=== PATIENT | male | born 1985 | race Caucasian/White ===

== ENCOUNTER 2016-06-20 15:20 | Emergency (ER) | payer BC, OTHER ==
[2016-06-20 15:38] VITALS: BP 147/86; PULSE 79; RESP 16; TEMP 98.3
--- NOTE | 2016-06-20 17:48 | ED ---
General Adult HPI - General Chief complaint: ENT Stated complaint: Ear Pain Time Seen by Provider: 06/20/16 17:23 Source: patient, RN notes reviewed Mode of arrival: ambulatory Limitations: no limitations - History of Present Illness Initial comments: Patient is a 30 year old male with chief complaint of left ear pain, sinus congestion, and occasional dizziness from fluid in his ears for one week. Patient denies taking any OTC decongestants. He denies fever. Patient report he left work to be seen in the today. He states that he has had no cough, sore throat, headaches, fever, or chills. HE states he does smoke. Patient reports he received childhood vaccinations. - Related Data Home Medications Medication Instructions Recorded Confirmed Lisinopril [Zestril] 5 mg PO DAILY 03/07/16 03/07/16 Previous Rx's Medication Instructions Recorded Acetaminophen-Codeine 300-30mg 1 tab PO Q4H PRN #20 tablet 03/07/16 [Tylenol #3] Cyclobenzaprine [Flexeril] 10 mg PO TID PRN #15 tab 03/07/16 methylPREDNISolone [Medrol Dose 4 mg PO DIRECTED #1 pack 03/07/16 Pack] Amoxic-Pot Clav 875-125Mg 1 tab PO Q12HR #20 tablet 06/20/16 [Augmentin 875-125] Guaifenesin/Pseudoephedrne HCl 1 each PO BID #10 tab.er.12h 06/20/16 [Mucinex D ER 1,200-120 mg Tab] Meclizine HCl 12.5 mg PO TID #10 tab 06/20/16 Allergies Allergy/AdvReac Type Severity Reaction Status Date / Time No Known Allergies Allergy Verified 06/20/16 15:37 Review of Systems ROS Statement: Those systems with pertinent positive or pertinent negative responses have been documented in the HPI. ROS Other: All systems not noted in ROS Statement are negative. Past Medical History Past Medical History: Hypertension Additional Past Medical History / Comment(s): back pain, History of Any Multi-Drug Resistant Organisms: None Reported Past Surgical History: Adenoidectomy, Appendectomy Past Psychological History: Bipolar, Depression Smoking Status: Current every day smoker Past Alcohol Use History: Occasional Past Drug Use History: None Reported General Exam - General Exam Comments Initial Comments: Well appearing 30 year old male, in no acute dsitress. Limitations: no limitations General appearance: alert, in no apparent distress Head exam: Present: atraumatic, normocephalic, normal inspection Eye exam: Present: normal appearance, PERRL, EOMI. Absent: scleral icterus, conjunctival injection, periorbital swelling ENT exam: Present: normal exam, normal oropharynx, mucous membranes moist, TM's normal bilaterally (mild fluid in left TM. ) Neck exam: Present: normal inspection. Absent: tenderness, meningismus, lymphadenopathy Respiratory exam: Present: normal lung sounds bilaterally. Absent: respiratory distress, wheezes, rales, rhonchi, stridor Cardiovascular Exam: Present: regular rate, normal rhythm, normal heart sounds. Absent: systolic murmur, diastolic murmur, rubs, gallop, clicks GI/Abdominal exam: Present: soft, normal bowel sounds. Absent: distended, tenderness, guarding, rebound, rigid Extremities exam: Present: normal inspection, full ROM, normal capillary refill. Absent: tenderness, pedal edema, joint swelling, calf tenderness Back exam: Present: normal inspection Neurological exam: Present: alert, oriented X3, CN II-XII intact Psychiatric exam: Present: normal affect, normal mood Skin exam: Present: warm, dry, intact, normal color. Absent: rash Course Vital Signs 06/20/16 15:35 Temperature 98.3 F Pulse Rate 79 Respiratory 16 Rate Blood Pressure 147/86 O2 Sat by Pulse 99 Oximetry Medical Decision Making - Medical Decision Making Patient is a 30 year old male with one week of sinus congestion. Patient has no fever, wheezing, or cough. Patient has mild fluid in left TM. Patient given Rx for decongestant, meclinzine for fluid in his ear, and Rx of augmentin. I had a lengthy discussion that patient needs to start antibiotic if symptoms continue to persist after 3 days of decongestant. Patient given a note for work. Patient understands treatment plan and will comply. Return parameters discussed. Disposition Clinical Impression: Sinusitis, Ear ache Disposition: HOME SELF-CARE Condition: Good Instructions: Earache (ED), Sinusitis (ED) Additional Instructions: Is instructed to take medications as prescribed. Follow-up with primary care provider if symptoms continue persist. Start antibiotics in one to 2 days symptoms continue to persist. Return to the [facility] if any alarming signs or symptoms occur. Prescriptions: Amoxic-Pot Clav 875-125Mg [Augmentin 875-125] 1 tab PO Q12HR #20 tablet Guaifenesin/Pseudoephedrne HCl [Mucinex D ER 1,200-120 mg Tab] 1 each PO BID # 10 tab.er.12h Meclizine HCl 12.5 mg PO TID #10 tab Referrals: Kristin Boone MD [Primary Care Provider] - 1-2 days Time of Disposition: 17:46
== END 2016-06-20 17:54 | disposition home or self-care (01) ==
LOC: EC 15:20
DX: H92.02 Otalgia, left ear (principal); J32.9 Chronic sinusitis, unspecified; I10 Essential (primary) hypertension; F17.200 Nicotine dependence, unspecified, uncomplicated; Z79.899 Other long term (current) drug therapy
CPT/HCPCS: 99282

== ENCOUNTER 2016-07-12 19:15 | Emergency (ER) | payer BC ==
[2016-07-12 19:42] VITALS: BP 157/87; PULSE 68; RESP 18; TEMP 98.2
[2016-07-12] MEDS ORDERED: KETOROLAC 60 MG/2 ML VIAL IM STA (19:56)
--- NOTE | 2016-07-12 20:05 | ED ---
Upper Extremity HPI - General Chief Complaint: Extremity Injury, Upper Stated Complaint: Back Pain/Shoulder Pain Time Seen by Provider: 07/12/16 19:49 Source: patient, RN notes reviewed Mode of arrival: ambulatory Limitations: no limitations - History of Present Illness Initial Comments: 30 yo male presents to the ER with cc of right shoulder pain. Patient states he was at the gym and he noticed that his right shoulder was causing him some pain. Patient states there wasn't one incident that caused of the pain that he noticed that throughout the workout he did become More pain. Patient states he now has pain to the right shoulder worse with movement and does radiate up into the neck and pain with some range of motion of the neck as well. Patient does admit to a history of shoulder pain in the past. Patient states that it happens sometimes. Patient states that he did work out quite often when he was younger and is currently trying to prevent a better strategy states he does not get injured. Patient states she was concerned because the pain continued to hurt throughout the day and even after he quit working outside that he should be evaluated. Patient denies any recent fever, chills, shortness of breath, chest pain, back pain, abdominal pain, nausea vomiting, numbness or tingling, dysuria or hematuria, constipation or diarrhea, headaches or visual changes, or any other current symptoms. - Related Data Previous Rx's Medication Instructions Recorded Ibuprofen [Motrin] 600 mg PO Q6HR PRN #20 tab 07/12/16 Orphenadrine [Norflex] 100 mg PO Q12H #10 tablet.er 07/12/16 Allergies Allergy/AdvReac Type Severity Reaction Status Date / Time No Known Allergies Allergy Verified 07/12/16 20:01 Review of Systems ROS Statement: Those systems with pertinent positive or pertinent negative responses have been documented in the HPI. ROS Other: All systems not noted in ROS Statement are negative. Past Medical History Past Medical History: Hypertension Additional Past Medical History / Comment(s): back pain, History of Any Multi-Drug Resistant Organisms: None Reported Past Surgical History: Adenoidectomy, Appendectomy Past Psychological History: Bipolar, Depression Smoking Status: Current every day smoker Past Alcohol Use History: Occasional Past Drug Use History: None Reported General Exam - General Exam Comments Initial Comments: General: The patient is awake and alert, in no distress, and does not appear acutely ill. Neck: The neck is supple, there is no tenderness. Cardiovascular: There is a regular rate and rhythm. No murmur, rub or gallop is appreciated. Respiratory: Lungs are clear to auscultation, respirations are non-labored, breath sounds are equal. No wheezes, stridor, rales, or rhonchi. Musculoskeletal: Sensation intact with 2+ pulses that her right upper chest. Full range of motion of the right shoulder right elbow and patient's neck. There is no bony tenderness noted. Tenderness patient along the trapezius. No deformity. Neurological: CN II-XII intact, There are no obvious motor or sensory deficits. Coordination appears grossly intact. Speech is normal. Skin: Skin is warm and dry and no rashes or lesions are noted. Psychiatric: Normal mood and affect. Limitations: no limitations Course Vital Signs 07/12/16 19:39 Temperature 98.2 F Pulse Rate 68 Respiratory 18 Rate Blood Pressure 157/87 O2 Sat by Pulse 99 Oximetry Medical Decision Making - Medical Decision Making 30-year-old male presents with a right shoulder strain and trapezius strain. At this time patient underwent an x-ray does not show any acute findings. We did discuss follow-up with orthopedic information. We discussed return parameters and all the patient's questions. He stated they understood using. The plan we will give him a short course of muscle relaxers and anti- inflammatories home. - Radiology Data Radiology results: report reviewed, image reviewed Disposition Clinical Impression: Right shoulder strain, Trapezius strain Disposition: HOME SELF-CARE Condition: Stable Instructions: Rotator Cuff Injury (ED) Additional Instructions: Please use medication as discussed. Please follow up with family doctor if symptoms have not improved over the next two days. Please return to the emergency room if your symptoms increase or worsen or for any other concerns. Prescriptions: Ibuprofen [Motrin] 600 mg PO Q6HR PRN #20 tab PRN Reason: Pain Orphenadrine [Norflex] 100 mg PO Q12H #10 tablet.er Referrals: Kristin Boone MD [Primary Care Provider] - 1-2 days Billy Walters DO [Doctor of Osteopathic Medicine] - 1-2 days Time of Disposition: 20:44
--- NOTE | 2016-07-12 20:37 | XR ---
Right shoulder HISTORY: Injury, pain 3 views of the right shoulder No comparisons Bone mineralization, joint spaces and alignment are maintained. Right lung apex as visualized is norm al IMPRESSION: No fracture or dislocation
== END 2016-07-12 21:03 | disposition home or self-care (01) ==
LOC: EC 19:15
DX: S46.011A Strain of muscle(s) and tendon(s) of the rotator cuff of right shoulder, initial encounter (principal); F17.200 Nicotine dependence, unspecified, uncomplicated; X58.XXXA Exposure to other specified factors, initial encounter; Y92.39 Other specified sports and athletic area as the place of occurrence of the external cause
CPT/HCPCS: 73030; 99283; 96372; J1885

== ENCOUNTER 2016-07-17 02:12 | Emergency (ER) | payer BC ==
[2016-07-17 02:19] VITALS: BP 144/94; PULSE 103; RESP 20; TEMP 99
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
== END 2016-07-17 04:13 | disposition home or self-care (01) ==
LOC: EC 02:12
DX: S01.111A Laceration without foreign body of right eyelid and periocular area, initial encounter (principal); S09.90XA Unspecified injury of head, initial encounter; Y04.2XXA Assault by strike against or bumped into by another person, initial encounter; F17.200 Nicotine dependence, unspecified, uncomplicated; J32.0 Chronic maxillary sinusitis; J32.2 Chronic ethmoidal sinusitis; Z87.81 Personal history of (healed) traumatic fracture
CPT/HCPCS: 12011; 70450; 70486; 72125; 99284

== ENCOUNTER 2016-11-10 14:26 | Emergency (ER) | payer BC ==
[2016-11-10 14:54] VITALS: BP 136/88; PULSE 86; RESP 20; TEMP 97.9
--- NOTE | 2016-11-10 15:56 | ED ---
ENT HPI - General Chief complaint: ENT Stated complaint: Ear Pain/Dental Pain Time Seen by Provider: 11/10/16 15:09 Source: patient, RN notes reviewed Mode of arrival: ambulatory Limitations: no limitations - History of Present Illness Initial comments: Patient is a 31-year-old male presents to the emergency room for evaluation of left ear pain and left upper dental pain. Patient states pain began yesterday and has been getting worse. Patient does state he has a history of ear infections. Patient states he had tubes placed when he was 21 years old. Patient states he feels like he has an ear infection again. Patient also states he began having dental pain in his left upper tooth. Patient states he has a dentist appointment on Monday. Patient denies fevers or chills. Patient does state he is having headaches from the ear pain. Patient does state he does have a decrease in hearing in his left ear as well. - Related Data Previous Rx's Medication Instructions Recorded Ibuprofen [Motrin] 600 mg PO Q6HR PRN #20 tab 07/12/16 Orphenadrine [Norflex] 100 mg PO Q12H #10 tablet.er 07/12/16 Amoxicillin/Potassium Clav 1 each PO Q12HR #20 tab 11/10/16 [Augmentin 875-125 Tablet] Ibuprofen [Motrin] 600 mg PO Q6HR PRN #20 tab 11/10/16 Allergies Allergy/AdvReac Type Severity Reaction Status Date / Time No Known Allergies Allergy Verified 11/10/16 14:54 Review of Systems ROS Statement: Those systems with pertinent positive or pertinent negative responses have been documented in the HPI. ROS Other: All systems not noted in ROS Statement are negative. Past Medical History Past Medical History: Hypertension Additional Past Medical History / Comment(s): back pain, History of Any Multi-Drug Resistant Organisms: None Reported Past Surgical History: Adenoidectomy, Appendectomy Past Psychological History: Bipolar, Depression Smoking Status: Current every day smoker Past Alcohol Use History: Occasional Past Drug Use History: None Reported General Exam - General Exam Comments Initial Comments: Sitting in exam room, no acute distress. Limitations: no limitations General appearance: alert, in no apparent distress Head exam: Present: atraumatic, normocephalic, normal inspection Eye exam: Present: normal appearance Expanded TM/Canal exam: Erythema: Left TM, Canal Tenderness: Left TM Mouth exam: Present: normal external inspection Teeth exam: Present: dental tenderness # (15) Throat exam: normal inspection Neck exam: Present: normal inspection Respiratory exam: Absent: respiratory distress Extremities exam: Present: normal inspection Back exam: Present: normal inspection Neurological exam: Present: alert, oriented X3, CN II-XII intact Psychiatric exam: Present: normal affect, normal mood Skin exam: Present: warm, dry, intact, normal color. Absent: rash Course Vital Signs 11/10/16 14:53 Temperature 97.9 F Pulse Rate 86 Respiratory 20 Rate Blood Pressure 136/88 O2 Sat by Pulse 99 Oximetry Medical Decision Making - Medical Decision Making Patient is a 31-year-old male presents emergency room for evaluation of left upper dental pain and left ear pain. Patient be treated for otitis media and dental pain. Patient does have a dentist appointment on Monday. Advised patient to follow-up with primary care provider if ear pain worsens or does not improve. Patient states he understands everything that was discussed with him. Return parameters discussed. Disposition Clinical Impression: Pain, dental, Otitis media Disposition: HOME SELF-CARE Condition: Good Instructions: Otitis Media (ED), Toothache (ED) Additional Instructions: Take antibiotics as directed. Please follow up with primary care provider and dentist. If any new symptom arises or symptoms worsen, return to ER as soon as possible. Prescriptions: Ibuprofen [Motrin] 600 mg PO Q6HR PRN #20 tab PRN Reason: Pain Amoxicillin/Potassium Clav [Augmentin 875-125 Tablet] 1 each PO Q12HR #20 tab Referrals: Kristin Boone MD [Primary Care Provider] - 1-2 days Time of Disposition: 15:50
== END 2016-11-10 16:04 | disposition home or self-care (01) ==
LOC: EC 14:26
DX: H66.92 Otitis media, unspecified, left ear (principal); K08.89 Other specified disorders of teeth and supporting structures; R51 Headache; F17.200 Nicotine dependence, unspecified, uncomplicated
CPT/HCPCS: 99282

== ENCOUNTER 2017-12-29 14:31 | Inpatient (IN) | payer BC ==
--- NOTE | 2017-12-29 15:04 | ED ---
Psych HPI - General Chief Complaint: Psychiatric Symptoms Stated Complaint: Mental Health Time Seen by Provider: 12/29/17 14:42 Source: patient, RN notes reviewed Mode of arrival: ambulatory Limitations: no limitations - History of Present Illness Initial Comments: 32-year-old male presents emergency Department chief complaint of depression, suicidal ideation. He states that he's had on-and-off thoughts with no plan. Patient states that approximately 6 months ago he stopped drinking alcohol but states that he then became involved in drugs. He states he has been using cocaine. Patient states that his mom for some come to the hospital today to receive help. Patient denies any physical complaints. Denies any homicidal ideation. Patient denies chest pain, shortness breath, headache, dizziness, nausea, vomiting, diarrhea constipation. - Related Data Previous Rx's Medication Instructions Recorded Ibuprofen [Motrin] 600 mg PO Q6HR PRN #20 tab 07/12/16 Orphenadrine [Norflex] 100 mg PO Q12H #10 tablet.er 07/12/16 Amoxicillin/Potassium Clav 1 each PO Q12HR #20 tab 11/10/16 [Augmentin 875-125 Tablet] Ibuprofen [Motrin] 600 mg PO Q6HR PRN #20 tab 11/10/16 Allergies Allergy/AdvReac Type Severity Reaction Status Date / Time No Known Allergies Allergy Verified 12/29/17 14:39 Review of Systems ROS Statement: Those systems with pertinent positive or pertinent negative responses have been documented in the HPI. ROS Other: All systems not noted in ROS Statement are negative. Past Medical History Past Medical History: Hypertension Additional Past Medical History / Comment(s): back pain, alcoholism History of Any Multi-Drug Resistant Organisms: None Reported Past Surgical History: Adenoidectomy, Appendectomy Past Psychological History: Bipolar, Depression Smoking Status: Current every day smoker Past Alcohol Use History: Occasional Past Drug Use History: Cocaine General Exam Limitations: no limitations General appearance: alert, in no apparent distress Head exam: Present: atraumatic, normocephalic, normal inspection Eye exam: Present: normal appearance, PERRL, EOMI. Absent: scleral icterus, conjunctival injection, periorbital swelling ENT exam: Present: normal exam, normal oropharynx, mucous membranes moist Neck exam: Present: normal inspection, full ROM. Absent: tenderness, meningismus, lymphadenopathy Respiratory exam: Present: normal lung sounds bilaterally. Absent: respiratory distress, wheezes, rales, rhonchi, stridor Cardiovascular Exam: Present: regular rate, normal rhythm, normal heart sounds. Absent: systolic murmur, diastolic murmur, rubs, gallop, clicks GI/Abdominal exam: Present: soft, normal bowel sounds. Absent: distended, tenderness, guarding, rebound, rigid Psychiatric exam: Present: depressed Skin exam: Present: warm, dry, intact, normal color. Absent: rash Course Vital Signs 12/29/17 14:37 Temperature 98.2 F Pulse Rate 67 Respiratory 18 Rate Blood Pressure 143/91 O2 Sat by Pulse 98 Oximetry Medical Decision Making - Lab Data Lab Results 12/29/17 Range/Units 14:50 Urine Opiates Screen Not Detected (NotDetected) Ur Oxycodone Screen Not Detected (NotDetected) Urine Methadone Screen Not Detected (NotDetected) Ur Propoxyphene Screen Not Detected (NotDetected) Ur Barbiturates Screen Not Detected (NotDetected) U Tricyclic Antidepress Not Detected (NotDetected) Ur Phencyclidine Scrn Not Detected (NotDetected) Ur Amphetamines Screen Not Detected (NotDetected) U Methamphetamines Scrn Not Detected (NotDetected) U Benzodiazepines Scrn Not Detected (NotDetected) Urine Cocaine Screen Detected H (NotDetected) U Marijuana (THC) Screen Detected H (NotDetected) Disposition Clinical Impression: Depression, Suicidal ideation, Cocaine dependence Disposition: ADMITTED IP TO THIS [facility] Condition: Stable Referrals: Kristin Boone MD [Primary Care Provider] - 1-2 days
[2017-12-29 15:14] LABS: Amphetamine Screen,Urine Not Detected (NotDetected); Barbiturate Screen,Urine Not Detected (NotDetected); Benzodiazepines Screen,Urine Not Detected (NotDetected); Cocaine Screen,Urine Detected (NotDetected); Methadone Screen, Urine Not Detected (NotDetected); Opiate Screen,Urine Not Detected (NotDetected); Oxycodone Screen, Urine Not Detected (NotDetected); Phencyclidine Screen,Urine Not Detected (NotDetected); Tricyclic Antidepressant,Urine Not Detected (NotDetected); Urn Cannabinoid Scrn Detected (NotDetected)
[2017-12-29] MEDS ORDERED: MAG HYDROX/AL HYDROX/SIMETH 30 ML CUP PO PRN (16:26)
[2017-12-29] MEDS ORDERED: ZIPRASIDONE 20 MG VIAL IM PRN (16:26)
[2017-12-29] MEDS ORDERED: LORazepam 1 MG TAB PO PRN (16:26)
[2017-12-29] MEDS ORDERED: MAGNESIUM HYDROXIDE 2,400 MG/10 ML CUP PO PRN (16:26)
[2017-12-29 16:31] VITALS: RESP 16
[2017-12-29] MEDS ORDERED: LORazepam 2 MG/ML INJ IM PRN (16:31)
[2017-12-29] MEDS: NICOTINE 14MG/24HR PATCH TRANSDERM SCH (17:26)
[2017-12-29] MEDS: ACETAMINOPHEN TAB 325 MG TAB PO PRN ×2 (17:28→23:19)
[2017-12-29 18:18] VITALS: BMI 23.8
[2017-12-30 08:37] LABS: Albumin 4.5 g/dL (3.5-5.0); Anion Gap 7 mmol/L; Bilirubin, Delta 0.2 mg/dL (0.0-0.2); Bilirubin,Unconjugated 0.3 mg/dL (0.0-1.1); Calcium 9.5 mg/dL (8.4-10.2); Carbon Dioxide 28 mmol/L (22-30); Chloride 104 mmol/L (98-107); Glucose 110 mg/dL (74-99); Sodium 139 mmol/L (137-145); Total Bilirubin 0.5 mg/dL (0.2-1.3)
[2017-12-30 08:52] LABS: ALT 23 U/L (21-72); AST 20 U/L (17-59); Alkaline Phosphatase 52 U/L (38-126); Blood Urea Nitrogen 14 mg/dL (9-20); Potassium 4.9 mmol/L (3.5-5.1)
[2017-12-30] MEDS: NICOTINE 14MG/24HR PATCH TRANSDERM SCH (08:57)
[2017-12-30 09:25] LABS: Basophils % (A) 1 %; Eosinophils # (A) 0.2 k/uL (0-0.7); Eosinophils % (A) 2 %; HCT 46.8 % (39.0-53.0); HGB 15.1 gm/dL (13.0-17.5); Lymphocytes # (A) 2.9 k/uL (1.0-4.8); Lymphocytes % (A) 41 %; MCH 29.9 pg (25.0-35.0); MCHC 32.3 g/dL (31.0-37.0); MCV 92.5 fL (80.0-100.0); Mean Platelet Volume 7.7; Monocytes # (A) 0.4 k/uL (0-1.0); Monocytes % (A) 5 %; Neutrophils # (A) 3.3 k/uL (1.3-7.7); Neutrophils % (A) 47 %; Platelet Count 206 k/uL (150-450); RBC 5.06 m/uL (4.30-5.90); RDW 12.6 % (11.5-15.5); WBC 7.1 k/uL (3.8-10.6)
[2017-12-30] MEDS: DIVALPROEX ER 500 MG TAB.ER.24H PO SCH (10:42)
[2017-12-30] MEDS: DULoxetine HCL 30 MG CAPSULE.DR PO SCH (10:42)
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
--- NOTE | 2017-12-30 13:37 | P.CONS ---
History of Present Illness - Reason for Consult Medical clearance - History of Present Illness Patient is a very pleasant 32-year-old gentleman came in the with suicidal ligation admitted to psychiatric floor. Patient does have history of bipolar disorder does have history of drug abuse in the past patient recent cocaine use was couple days ago and patient does use marijuana often. was recently treated with antibiotics for for his broken tooth he completed a course of antibiotics would not require any more. Patient is willing to quit his smoking alcohol or any other street drugs. Patient denied any fever chills nausea vomiting abdominal pain. Review of Systems REVIEW OF SYSTEMS: CONSTITUTIONAL: No fever, no malaise, no fatigue. HEENT: No recent visual problems or hearing problems. Denied any sore throat. CARDIOVASCULAR: No chest pain, orthopnea, PND, no palpitations, no syncope. PULMONARY: No shortness of breath, no cough, no hemoptysis. GASTROINTESTINAL: No diarrhea, no nausea, no vomiting, no abdominal pain. Normoactive bowel sounds. NEUROLOGICAL: No headaches, no weakness, no numbness. HEMATOLOGICAL: Denies any bleeding or petechiae. GENITOURINARY: Denies any burning micturition, frequency, or urgency. MUSCULOSKELETAL/RHEUMATOLOGICAL: Denies any joint pain, swelling, or any muscle pain. ENDOCRINE: Denies any polyuria or polydipsia. The rest of the 14-point review of systems is negative. Past Medical History Past Medical History: Hypertension Additional Past Medical History / Comment(s): back pain, alcoholism History of Any Multi-Drug Resistant Organisms: None Reported Past Surgical History: Adenoidectomy, Appendectomy Past Anesthesia/Blood Transfusion Reactions: No Reported Reaction Past Psychological History: Bipolar, Depression Smoking Status: Current every day smoker Past Alcohol Use History: Occasional Past Drug Use History: Cocaine, Marijuana Medications and Allergies Home Medications Medication Instructions Recorded Confirmed Type Dextroamphetamine/Amphetamine 20 mg PO TID 12/29/17 12/29/17 History [Adderall] Allergies Allergy/AdvReac Type Severity Reaction Status Date / Time No Known Allergies Allergy Verified 12/29/17 16:30 Physical Exam Vitals: Vital Signs Temp Pulse Pulse Resp BP BP Pulse Ox 12/30/17 06:47 97.7 F 60 16 115/76 12/29/17 18:09 97.2 F L 65 16 107/67 99 12/29/17 16:30 98.0 F 60 16 124/72 100 08/03/18 14:37 98.2 F 67 18 143/91 98 Intake and Output 12/29/17 12/30/17 12/30/17 22:59 06:59 14:59 Other: Weight 67 kg PHYSICAL EXAMINATION: GENERAL: The patient is alert and oriented x3, not in any acute distress. Well developed, well nourished. HEENT: Pupils are round and equally reacting to light. EOMI. No scleral icterus. No conjunctival pallor. Normocephalic, atraumatic. No pharyngeal erythema. No thyromegaly. CARDIOVASCULAR: S1 and S2 present. No murmurs, rubs, or gallops. PULMONARY: Chest is clear to auscultation, no wheezing or crackles. ABDOMEN: Soft, nontender, nondistended, normoactive bowel sounds. No palpable organomegaly. MUSCULOSKELETAL: No joint swelling or deformity. EXTREMITIES: No cyanosis, clubbing, or pedal edema. NEUROLOGICAL: Gross neurological examination did not reveal any focal deficits. SKIN: No rashes. Results CBC & Chem 7: 12/30/17 08:08 12/30/17 08:08 Labs: Abnormal Lab Results - Last 24 Hours (Table) 12/29/17 12/30/17 Range/Units 14:50 08:08 Glucose 110 H (74-99) mg/dL Urine Cocaine Screen Detected H (NotDetected) U Marijuana (THC) Screen Detected H (NotDetected) Assessment and Plan Plan: -Depression and suicidal ideation, bipolar disorder: Management as per primary service -Drug abuse alcohol abuse: Counseling was provided and patient is willing to quit and patient will go to drug rehabilitation program after his discharge from psychiatric floor. No further recommendations from medicine perspective, we'll sign off at this time call us back if needed
[2017-12-30 17:59] LABS: Amorphous Sediment,Urine Few /hpf; Appearance,Urine Turbid (Clear); Bilirubin,Urine Negative (Negative); Blood,Urine Negative (Negative); Color,Urine Yellow; Glucose,Urine (UA) Negative (Negative); Ketones,Urine Negative (Negative); Leukocyte Esterase,Urine Negative (Negative); Nitrite,Urine Negative (Negative); Protein,Urine Negative (Negative); Specific Gravity,Urine 1.014 (1.001-1.035); Squamous Epithelial Cell,Urine <1 /hpf (0-4); Urobilinogen,Urine <2.0 mg/dL (<2.0)
[2017-12-31] MEDS: NICOTINE 14MG/24HR PATCH TRANSDERM SCH (08:59)
[2017-12-31] MEDS: DIVALPROEX ER 500 MG TAB.ER.24H PO SCH (08:59)
[2017-12-31] MEDS: DULoxetine HCL 30 MG CAPSULE.DR PO SCH (08:59)
--- NOTE | 2017-12-31 14:01 | PN ---
PROGRESS NOTE DATE OF SERVICE: Today is December 31, 2017. SUBJECTIVE: Mr. Quincy Ham is a 32-year-old single male with history of bipolar disorder and attention deficit disorders. Again seen today, still somewhat depressed and down. He reports taking medication, tolerating well, reporting no side effects. He reports he has trouble sleeping last night. He took Cymbalta and did not have any nausea or vomiting. He denies any other issues. He is still vaguely suicidal but feels safe on the unit. MENTAL EXAMINATION: Patient is alert, awake, oriented x4. Has fair eye contact. Speech is somewhat few word sentences soft tone. Mood dysphoric, anxious with congruent affect. He still has suicidal ideation but feels safe on the unit. No homicidal ideation. He denies any auditory or visual hallucinations. Attention is better. Insight and judgment has started improving slowing and gradually. ASSESSMENT: Bipolar disorder type 1, most recent episode depression without psychosis. PLAN: We will continue to adjust medications accordingly. Encouraged to attend groups and meetings. Supportive therapy provided. NEDA / ADONAY: [id number] /
[2018-01-01] MEDS: DIVALPROEX ER 500 MG TAB.ER.24H PO SCH (08:20)
[2018-01-01] MEDS: NICOTINE 14MG/24HR PATCH TRANSDERM SCH (08:20)
[2018-01-01] MEDS: DULoxetine HCL 30 MG CAPSULE.DR PO SCH (08:21)
--- NOTE | 2018-01-01 10:21 | P.PN ---
Progress Note - Text Interval history: The patient is found in group he follows me to an interview room. He was admitted to the mental health unit with suicidal ideation. He was seen by the covering psychiatrist and was diagnosed with bipolar 1 depression. His symptoms also occur in the context of cocaine and marijuana use disorders. He reports feeling safe here in the hospital. He feels that he is stabilizing. We reviewed his medications and decided to titrate the Cymbalta further. He does endorse episodes that could seem manic at times but it is not clear at this point. He thinks that the Depakote has helped with impulsivity and anger in the past. He states that he is interested in participating in inpatient chemical dependency treatment as he has been using cocaine and marijuana almost daily for the last 2 months. Mental status exam: The patient is a male appearing his stated age. He is dressed in his own clothing. He is cooperative. Eye contact is appropriate speech is fluent spontaneous nonpressured. He reports improvement of suicidal thoughts. He is endorsing no homicidal ideation. He is trying to foster future oriented thinking. He demonstrates no verbal or physical aggressiveness. Affect remains constricted throughout the session. He is oriented to person place and date. He is endorsing no auditory or visual hallucinations or any specific delusions. He does not appear overtly psychotic and he does not appear hypomanic or manic. Plan: The patient will continue on Cymbalta however we will titrate the dose to 60 mg daily. We will continue the Depakote as written for now. He is encouraged to discuss his plans for inpatient chemical dependency treatment with social work and we will discuss this further in treatment team meeting. Vital signs reviewed. We will monitor for safety and encourage his participation in the milieu.
[2018-01-01] MEDS: ACETAMINOPHEN TAB 325 MG TAB PO PRN (22:39)
[2018-01-02 06:26] VITALS: BP 116/62; PULSE 62; TEMP 97.8
[2018-01-02] MEDS: NICOTINE 14MG/24HR PATCH TRANSDERM SCH (08:11)
[2018-01-02] MEDS: DIVALPROEX ER 500 MG TAB.ER.24H PO SCH (08:11)
[2018-01-02] MEDS ORDERED: DULoxetine HCL 60 MG CAPSULE.DR PO SCH (09:00)
--- NOTE | 2018-01-02 09:54 | P.DS ---
Providers Date of admission: 12/29/17 16:22 Expected date of discharge: 01/02/18 Attending physician: Daniel Dickey Consults: 12/29/17 16:26 Consult Physician Routine Consulting Provider: Shi Guerrero Consult Reason/Comments: H & P, HTN, medical care Do you want consulting provider notified?: Yes Primary care physician: Paolo Foster - Discharge Diagnosis(es) (1) Depression Current Visit: Yes Status: Acute Priority: High (2) Cocaine use disorder Current Visit: Yes Status: Acute Priority: High (3) Cannabis use disorder, moderate, dependence Current Visit: Yes Status: Acute Priority: Medium Hospital Course: Brief summary of admission note: This patient is a 32-year-old single male who was admitted to the mental health unit with worsening symptoms of depression and suicidal ideation. The patient reported feeling depressed for the last few weeks. He been off of medication for an extended period of time. He reported symptoms of anhedonia, irritability, decreased concentration, feeling tired with poor appetite and low energy. For full detail please refer to the psychiatric evaluation dated 12/30/2017. Summary of hospital course: The patient was admitted to the mental health unit voluntarily. He was seen by the [facility] physician for the initial evaluation. I assumed care of the patient starting yesterday. I reviewed the psychiatric evaluation and other documentation in the electronic medical record. I interviewed the patient yesterday and he was seen today. He states that his suicidal ideation has resolved and he is feeling quite hopeful now that he has made arrangements to go to a long-term chemical dependency treatment facility in [place]. His mother is assisting him with these arrangements. This was discussed with social work and she we'll verify with the patient's mother. The patient has no questions or concerns regarding his psychotropic medication. We have titrated the Cymbalta to 60 mg daily and he remains on Depakote ER 500 mg daily. He feels that the Depakote is helping with feelings of irritability. He has been cooperative with the milieu he is demonstrating no agitated behavior. He appropriately participates in the conversation. Mental status exam: The patient is alert he is dressed in his own clothing. Hygiene and grooming are adequate. Speech is fluent spontaneous nonpressured. He reports his mood is improved and he feels hopeful. He is reporting no suicidal or homicidal ideation intent or plan. He is reporting no auditory or visual hallucinations or any specific delusions. There is no observed evidence of psychosis. Thought process is linear he demonstrates no loose associations flight of ideas or tangential thinking. He does not appear hypomanic or manic. There is no evidence of abnormal involuntary movements. Affect is appropriately expresses and appears euthymic. He remains oriented to person place and date. Impressions 1. Depression unspecified, rule out major depressive disorder, rule out bipolar 2 disorder, cocaine use disorder, rule out ADHD, cannabis use disorder Plan: The patient will be discharged today. He is making arrangements to go to a 4 month program for inpatient chemical dependency treatment in [place]. He states he will be eligible to go there either today or tomorrow once arrangements are made. His mother has been helping him and make these arrangements and social work will collaborate with them and confirm the treatment plan. The patient will continue on Cymbalta 60 mg daily Depakote ER 500 mg daily. There is no imminent safety risk he is appropriate for transition to outpatient care/inpatient chemical dependency treatment. He is instructed to return to the hospital if any acute safety concerns. He is instructed to abstain from all use of alcohol marijuana or any other illicit drugs as they will elevate his safety risk if used. Patient Condition at Discharge: Stable Plan - Discharge Summary Discharge Rx Participant: No New Discharge Prescriptions: New Divalproex ER [Depakote ER] 500 mg PO DAILY #30 tab.er.24h DULoxetine HCL [Cymbalta] 60 mg PO DAILY #30 capsule. Nicotine 14Mg/24Hr Patch [Habitrol] 1 patch TRANSDERM DAILY #10 patch Discontinued Dextroamphetamine/Amphetamine [Adderall] 20 mg PO TID Discharge Medication List DULoxetine HCL [Cymbalta] 60 mg PO DAILY #30 capsule. 01/02/18 [Rx] Divalproex ER [Depakote ER] 500 mg PO DAILY #30 tab.er.24h 01/02/18 [Rx] Nicotine 14Mg/24Hr Patch [Habitrol] 1 patch TRANSDERM DAILY #10 patch 01/02/18 [ Rx] Follow up Appointment(s)/Referral(s): intake,intake [Other] - 1 Week Kristin Boone MD [Primary Care Provider] - 1-2 days
== END 2018-01-02 11:51 | disposition home or self-care (01) | DRG 885 ==
LOC: EC 14:31 → 3MHU 16:22
PROVIDERS: ADMIT Psychiatry & Neurology Psychiatry; ATTEND Psychiatry & Neurology Psychiatry
DX: F31.30 Bipolar disorder, current episode depressed, mild or moderate severity, unspecified (principal); R45.851 Suicidal ideations; F17.200 Nicotine dependence, unspecified, uncomplicated; F41.0 Panic disorder [episodic paroxysmal anxiety]; I10 Essential (primary) hypertension; S02.5XXS Fracture of tooth (traumatic), sequela; F14.10 Cocaine abuse, uncomplicated; F12.10 Cannabis abuse, uncomplicated; F10.21 Alcohol dependence, in remission; M54.9 Dorsalgia, unspecified; Z71.51 Drug abuse counseling and surveillance of drug abuser; Z71.41 Alcohol abuse counseling and surveillance of alcoholic; Z79.899 Other long term (current) drug therapy; F98.8 Other specified behavioral and emotional disorders with onset usually occurring in childhood and adolescence; Z59.0 Homelessness; Z62.810 Personal history of physical and sexual abuse in childhood; R45.84 Anhedonia
CPT/HCPCS: 80053; 80306; 81001; 82075; 82248; 84443; 85025; 99285

== ENCOUNTER 2024-05-12 11:41 | Emergency (ER) | payer BC, OTHER ==
--- NOTE | 2024-05-12 12:32 | ED ---
Back Pain HPI - General Source: patient, RN notes reviewed Mode of arrival: EMS Limitations: no limitations - History of Present Illness MD Complaint: back pain Onset/Timin -: days(s) <Steve Hayes - Last Filed: 05/12/24 12:40> <Chris Klein - Last Filed: 05/12/24 15:41> - General Stated Complaint: Back Pain Time Seen by Provider: 05/12/24 11:57 - History of Present Illness Initial Comments: Quick note: This is a 38-year-old male arriving via EMS presenting with back pain/injury (03/07) x 2 days. Patient states pain is worse today that worsens with movement, making standing difficult. Patient states he experiences associated shortness of breath when standing. Endorses radiating pain down the left leg as well and left neck tightness. Endorses pain potentially being linked to working out frequently. Denies saddle paresthesia, urinary incontinence/retention. (Steve Hayes) Dictation was produced using [employer] dictation software. please excuse any grammatical, word or spelling errors. Chief Complaint: 38-year-old male with back pain History of Present Illness: Patient 38-year-old male presents to the emergency department with left lower back pain. States he was doing calisthenics yester day when he woke up this morning felt some tightness to his left lower back. Patient has history of kidney stones. Patient states he did notthere is any blood in his urine. Denies any fever, chills or night sweats. States that his pain is mostly apparent when he stands and twist. The ROS documented in this emergency department record has been reviewed and confirmed by me. Those systems with pertinent positive or negative responses have been documented in the HPI. All other systems are other negative and/or noncontributory. (Chris Klein) - Related Data Previous Rx's Medication Instructions Recorded DULoxetine HCL [Cymbalta] 60 mg PO DAILY #30 capsule.dr 01/02/18 Divalproex ER [Depakote ER] 500 mg PO DAILY #30 tab.er.24h 01/02/18 Nicotine 14Mg/24Hr Patch [Habitrol] 1 patch TRANSDERM DAILY #10 patch 01/02/18 HYDROcodone/APAP 5-325MG [[place] 1 tab PO Q6HR PRN 3 Days #12 tab 05/12/24 5-325] Allergies Allergy/AdvReac Type Severity Reaction Status Date / Time No Known Allergies Allergy Verified 05/12/24 12:32 Review of Systems ROS Other: All systems not noted in ROS Statement are negative. <Steve Hayes - Last Filed: 05/12/24 12:40> ROS Other: All systems not noted in ROS Statement are negative. <Chris Klein - Last Filed: 05/12/24 15:41> ROS Statement: Those systems with pertinent positive or pertinent negative responses have been documented in the HPI. Past Medical History Past Medical History: Hypertension Additional Past Medical History / Comment(s): back pain, alcoholism History of Any Multi-Drug Resistant Organisms: None Reported Past Surgical History: Adenoidectomy, Appendectomy Past Anesthesia/Blood Transfusion Reactions: No Reported Reaction Past Psychological History: Bipolar, Depression Past Alcohol Use History: Occasional Past Drug Use History: Cocaine, Marijuana <Steve Hayes - Last Filed: 05/12/24 12:40> General Exam <Steve Hayes - Last Filed: 05/12/24 12:40> <Chris Klein - Last Filed: 05/12/24 15:41> - General Exam Comments Initial Comments: Visual Physical Exam Vital signs reviewed General: Well-appearing, nontoxic, no acute distress. Patient seated in wheelchair Head: Normocephalic, atraumatic Eyes: PERRLA, EOMI ENT: Airway patent Chest: Nonlabored breathing Skin: No visual rash, normal skin tone Neuro: Alert and oriented 3 Musculoskeletal: No gross abnormalities (Steve Hayes) PHYSICAL EXAM: General Impression: Alert and oriented x3, not in acute distress HEENT: Normocephalic atraumatic, extra-ocular movements intact, pupils equal and reactive to light bilaterally, mucous membranes moist. Cardiovascular: Heart regular rate and rhythm Chest: Able to complete full sentences, no retractions, no tachypnea Abdomen: abdomen soft, non-tender, non-distended, no organomegaly Musculoskeletal: Pulses present and equal in all extremities, no peripheral edema, palpatory tenderness to the soft tissues of left lower back Motor: no focal deficits noted Neurological: CN II-XII grossly intact, no focal motor or sensory deficits noted Skin: Intact with no visualized rashes Psych: Normal affect and mood (Chris Klein) Course Vital Signs 05/12/24 12:33 Temperature 97.8 F Pulse Rate 89 Respiratory 18 Rate Blood Pressure 147/93 O2 Sat by Pulse 97 Oximetry Medical Decision Making <Steve Hayes - Last Filed: 05/12/24 12:40> - Lab Data Result diagrams: 05/12/24 13:52 05/12/24 13:52 <Chris Klein - Last Filed: 05/12/24 15:41> - Medical Decision Making I completed the quick note portion of this chart signed KYREE Pacheco (Steve Hayes) Was pt. sent in by a medical professional or institution (NAY Arteaga, DIRECTOR CORPORATE SECURITY, urgent care, hospital, or fci...) When possible be specific @ -No Did you speak to anyone other than the patient for history (EMS, parent, family, police, friend...)? What history was obtained from this source @ -No Did you review nursing and triage notes (agree or disagree)? Why? @ -I reviewed and agree with nursing and triage notes Were old charts reviewed (outside hosp., previous admission, EMS record, old EKG, old radiological studies, urgent care reports/EKG's, fci records)? Report findings @ -No old charts were reviewed Differential Diagnosis (chest pain, altered mental status, abdominal pain women, abdominal pain men, vaginal bleeding, musculoskeletal, weakness, fever, dyspnea, syncope, headache, dizziness, GI bleed, back pain, seizure, CVA, palpatations, mental health)? @ -Differential Back Pain: Strain, zoster, cauda equina syndrome, epidural abscess, vertebral osteomyelitis, discitis, fracture, subluxation, disc herniation, DJD, spinal stenosis, dissection, AAA, pancreatitis, peptic ulcer disease, pyelonephritis, kidney stone, this is not meant to be an all-inclusive list. EKG interpreted by me (3pts min.). @ -None done X-rays interpreted by me (1pt min.). @ -Spine x-ray shows no acute processes CT interpreted by me (1pt min.). @ -CT abdomen pelvis shows proximal left ureteral stone U/S interpreted by me (1pt. min.). @ -None done What testing was considered but not performed or refused? (CT, X-rays, U/S, labs)? Why? @ -None What meds were considered but not given or refused? Why? @ -None Was smoking cessation discussed for >3mins.? @ -No Were there social determinants of health that impacted care today? How? (Homelessness, low income, unemployed, alcoholism, drug addiction, transportation, low edu. Level, literacy, decrease access to med. care, nursing home, rehab)? @ -No Was there de-escalation of care discussed even if they declined (Discuss DNR or withdrawal of care, Hospice)? DNR status @ -No What co-morbidities impacted this encounter? (DM, HTN, Smoking, COPD, CAD, Cancer, CVA, ARF, Chemo, Hep., AIDS, mental health diagnosis, sleep apnea, morbid obesity)? @ -Kidney stones Was patient admitted / discharged? Hospital course, mention meds given and route, prescriptions, significant lab abnormalities, going to OR and other pertinent info. @ -38-year-old male with past medical history of nephrolithiasis presents with back pain. He does report some musculoskeletal type pain however he does have history of kidney stones. Vital signs upon arrival are within acceptable limits. Laboratory evaluation obtained. No kidney injury. There does appear to be 18 red blood cells. Plan x-ray is unremarkable. CT abdomen pelvis shows 6 mm ureteral stone with hydroureteronephrosis. Patient reevaluated bedside at 3:40 PM feels better after pain medications. Patient agreeable discharged with outpatient follow-up with urologist. Patient given analgesics. Return precautions discussed. Did you discuss the management of the patient with other professionals (professionals i.e. , PA, DIRECTOR CORPORATE SECURITY, lab, RT, psych nurse, social service assistant, divine healer, teacher, giving officer, field case manager)? Give summary @ -No Was critical care preformed (if so, how long)? @ -No Undiagnosed new problem with uncertain prognosis? @ -No Drug Therapy requiring intensive monitoring for toxicity (Heparin, Nitro, Insulin, Cardizem)? @ -No Were any procedures done? @ -No Diagnosis/symptom? Acute, or Chronic, or Acute on Chronic? Uncomplicated (without systemic symptoms) or Complicated (systemic symptoms)? @ -Symptomatic nephrolithiasis Side effects of treatment? @ -No Exacerbation, Progression, or Severe Exacerbation? @ -No Poses a threat to life or bodily function? How? (Chest pain, [place], [place], pneumonia, PE, COPD, DKA, ARF, appy, cholecystitis, CVA, Diverticulitis, Homicidal, Suicidal, threat to staff... and all critical care pts) @ -yes (Chris Klein) - Lab Data Lab Results 05/12/24 05/12/24 05/12/24 Range/Units 13:52 13:52 13:52 WBC 7.4 (3.8-10.6) k/uL RBC 5.24 (4.30-5.90) m/uL Hgb 15.9 (13.0-17.5) gm/dL Hct 48.2 (39.0-53.0) % MCV 92.1 (80.0-100.0) fL MCH 30.3 (25.0-35.0) pg MCHC 32.9 (31.0-37.0) g/dL RDW 12.2 (11.5-15.5) % Plt Count 236 (150-450) k/uL MPV 7.9 Neutrophils % 62 % Lymphocytes % 30 % Monocytes % 5 % Eosinophils % 1 % Basophils % 0 % Neutrophils # 4.6 (1.3-7.7) k/uL Lymphocytes # 2.2 (1.0-4.8) k/uL Monocytes # 0.4 (0-1.0) k/uL Eosinophils # 0.1 (0-0.7) k/uL Basophils # 0.0 (0-0.2) k/uL Sodium 136 L (137-145) mmol/L Potassium 4.3 (3.5-5.1) mmol/L Chloride 103 (98-107) mmol/L Carbon Dioxide 28 (22-30) mmol/L Anion Gap 5 mmol/L BUN 13 (9-20) mg/dL Creatinine 0.86 (0.66-1.25) mg/dL Est GFR (CKD-EPI)AfAm >90 (>60 ml/min/1.73 sqM) Est GFR (CKD-EPI)NonAf >90 (>60 ml/min/1.73 sqM) Glucose 93 (74-99) mg/dL Calcium 9.3 (8.4-10.2) mg/dL Urine Color Colorless Urine Appearance Clear (Clear) Urine pH 6.5 (5.0-8.0) Ur Specific [place] 1.015 (1.001-1.035) Urine Protein Negative (Negative) Urine Glucose (UA) Negative (Negative) Urine Ketones Negative (Negative) Urine Blood Trace H (Negative) Urine Nitrite Negative (Negative) Urine Bilirubin Negative (Negative) Urine Urobilinogen <2.0 (<2.0) mg/dL Ur Leukocyte Esterase Negative (Negative) Urine RBC 18 H (0-5) /hpf Urine WBC <1 (0-5) /hpf Urine Mucus Rare H (None) /hpf Disposition <Steve Hayes - Last Filed: 05/12/24 12:40> Is patient prescribed a controlled substance at d/c from ED?: Yes If prescribed controlled substance>3 days was MAPS reviewed?: Prescribed <3 Days Time of Disposition: 15:41 <Chris Klein - Last Filed: 05/12/24 15:41> Clinical Impression: Kidney stone Disposition: HOME SELF-CARE Condition: Fair Instructions (If sedation given, give patient instructions): Kidney Stones (ED) Prescriptions: HYDROcodone/APAP 5-325MG [[place] 5-325] 1 tab PO Q6HR PRN 3 Days #12 tab PRN Reason: Severe Pain Referrals: Henrique Schroeder MD [STAFF PHYSICIAN] - 1-2 days
[2024-05-12 12:36] VITALS: BP 147/93; PULSE 89; RESP 18; TEMP 97.8
--- NOTE | 2024-05-12 13:29 | XR ---
EXAMINATION TYPE: XR spine complete AP and Lat DATE OF EXAM: 05/12/2024 1:10 PM COMPARISON: None CLINICAL INDICATION: Male, 38 years old with history of Diffuse spinal pain; [facility] TECHNIQUE: XR spine complete AP and Lat views of the spine in Frontal and lateral projections. Additional swimmer's view was performed of the upper thorax spine. FINDINGS: No evidence of acute fracture. There is scattered multilevel disk space narrowing without loss of ve rtebral body height. There is normal alignment of the vertebral bodies. Scattered osteophyte formatio n along the anterior and lateral aspects of the vertebral bodies. Neural foramen are patent given fowler itations of this exam. Spinal canal appears patent. IMPRESSION: 1. No acute osseous pathology. 2. Tqde-go-ouxyaniz multilevel degeneration changes of the spine. [facility], , 05/12/2024 1:26 PM
[2024-05-12] MEDS: SODIUM CHLORIDE 0.9% 1,000 ML IV STA (14:09)
[2024-05-12] MEDS: MORPHINE SULFATE 4 MG/ML SYRINGE IV STA (14:09)
[2024-05-12 14:22] LABS: Basophils % (A) 0 %; Eosinophils # (A) 0.1 k/uL (0-0.7); Eosinophils % (A) 1 %; HCT 48.2 % (39.0-53.0); HGB 15.9 gm/dL (13.0-17.5); Lymphocytes # (A) 2.2 k/uL (1.0-4.8); Lymphocytes % (A) 30 %; MCH 30.3 pg (25.0-35.0); MCHC 32.9 g/dL (31.0-37.0); MCV 92.1 fL (80.0-100.0); Mean Platelet Volume 7.9; Monocytes # (A) 0.4 k/uL (0-1.0); Monocytes % (A) 5 %; Neutrophils # (A) 4.6 k/uL (1.3-7.7); Neutrophils % (A) 62 %; Platelet Count 236 k/uL (150-450); RBC 5.24 m/uL (4.30-5.90); RDW 12.2 % (11.5-15.5); WBC 7.4 k/uL (3.8-10.6)
[2024-05-12 14:31] LABS: Appearance,Urine Clear (Clear); Bilirubin,Urine Negative (Negative); Blood,Urine Trace (Negative); Color,Urine Colorless; Glucose,Urine (UA) Negative (Negative); Ketones,Urine Negative (Negative); Leukocyte Esterase,Urine Negative (Negative); Mucus,Urine Rare /hpf; Nitrite,Urine Negative (Negative); PH, Urine 6.5 (5.0-8.0); Protein,Urine Negative (Negative); RBC,Urine 18 /hpf (0-5); Specific Gravity,Urine 1.015 (1.001-1.035); Urobilinogen,Urine <2.0 mg/dL (<2.0); WBC,Urine <1 /hpf (0-5)
[2024-05-12 14:33] LABS: African American GFR (CKD) >90 (>60 ml/min/1.73 sqM); Anion Gap 5 mmol/L; Blood Urea Nitrogen 13 mg/dL (9-20); Calcium 9.3 mg/dL (8.4-10.2); Carbon Dioxide 28 mmol/L (22-30); Chloride 103 mmol/L (98-107); Glucose 93 mg/dL (74-99); Non-African American GFR(CKD) >90 (>60 ml/min/1.73 sqM); Potassium 4.3 mmol/L (3.5-5.1); Sodium 136 mmol/L (137-145)
[2024-05-12] MEDS: KETOROLAC 15 MG/ML 1 ML VIAL IVP STA (15:19)
--- NOTE | 2024-05-12 15:26 | CT ---
EXAMINATION TYPE: CT abdomen pelvis wo con DATE OF EXAM: 05/12/2024 3:14 PM COMPARISON: None available. CLINICAL INDICATION: Male, 38 years old with history of lower back pain, hematuria; flank pain, hemat uria TECHNIQUE: Axial CT abdomen pelvis wo con;Sagittal and coronal reformats were created on a separate workstation. Oral contrast used: without Oral Contrast (none if empty) CT DLP: 530.8 mGycm, Automated exposure control for dose reduction was used. FINDINGS: LOWER CHEST: Unremarkable ABDOMEN LIVER: Unremarkable GALLBLADDER AND BILE DUCTS: Unremarkable. PANCREAS: Unremarkable. SPLEEN: Unremarkable. ADRENAL GLANDS: Unremarkable. KIDNEYS AND URETERS: 6 mm proximal left ureteral calculus causing mild to moderate upstream hydrouret eronephrosis. Additional punctate bilateral nonobstructing renal calculi. PELVIS BLADDER: No evidence for wall thickening or mass given limitations of exam. REPRODUCTIVE: Unremarkable. ABDOMEN & PELVIS STOMACH AND BOWEL: Stomach and duodenum are unremarkable No evidence of bowel obstruction. PERITONEUM/RETROPERITONEUM: No evidence of pneumoperitoneum or free fluid. VASCULATURE: No evidence of aortic aneurysm. MUSCULOSKELETAL: No acute osseous abnormalities LYMPH NODES: No gross evidence for lymphadenopathy. SOFT TISSUE/ABDOMINAL WALL: Unremarkable IMPRESSION: 1. Proximal 6 mm left ureteral calculus causing mild to moderate upstream hydroureteronephrosis. 2. Additional punctate bilateral nonobstructive renal calculi. [facility], , 05/12/2024 3:23 PM
[2024-05-12] MEDS: LIDOCAINE 4% PATCH TOPICAL ONE (15:32)
[2024-05-12] MEDS: ACET/COD 300 MG/30 MG STARTER PACK 6 TAB BTL PO STA (15:49)
== END 2024-05-12 15:58 | disposition home or self-care (01) ==
LOC: EC 11:41
DX: N13.2 Hydronephrosis with renal and ureteral calculous obstruction (principal)
CPT/HCPCS: 36415; 80048; 85025; 81001; 72082; 74176; 99284; 96374; 96375; 96361; J2270; J1885

== ENCOUNTER 2024-05-27 15:00 | Emergency (ER) | payer BC ==
[2024-05-27 15:06] VITALS: RESP 18
[2024-05-27] MEDS: cloNIDine HCL 0.1 MG TAB PO STA (17:27)
[2024-05-27] MEDS: SULFAMETHOX-TMP 800-160MG 1 EACH TAB PO STA (17:27)
[2024-05-27] MEDS: CEPHALEXIN 500 MG CAP PO STA (17:27)
--- NOTE | 2024-05-27 18:16 | ED ---
General Adult HPI - General Chief complaint: Skin/Abscess/Foreign Body Stated complaint: Possible spider bite Time Seen by Provider: 05/27/24 15:51 Source: patient Mode of arrival: ambulatory Limitations: no limitations - History of Present Illness Initial comments: 38-year-old male presenting with chief complaint of abscess to the right AC. Patient believes that he had a spider bite to this area. Started with a small red dot and today it is hard and painful. No fever. No red streaking up the arm. States that he feels like the area is expanding. No nausea or vomiting. Patient is also concerned about his blood pressure being elevated. No chest pain, difficulty breathing, blurry vision abdominal pain. He does have a mild headache. - Related Data Previous Rx's Medication Instructions Recorded DULoxetine HCL [Cymbalta] 60 mg PO DAILY #30 capsule.dr 01/02/18 Divalproex ER [Depakote ER] 500 mg PO DAILY #30 tab.er.24h 01/02/18 Nicotine 14Mg/24Hr Patch [Habitrol] 1 patch TRANSDERM DAILY #10 patch 01/02/18 HYDROcodone/APAP 5-325MG [[place] 1 tab PO Q6HR PRN 3 Days #12 tab 05/12/24 5-325] Cephalexin [Keflex] 500 mg PO Q6HR 7 Days #28 cap 05/27/24 Sulfamethox-Tmp 800-160Mg [Bactrim 1 tab PO Q12HR 7 Days #14 tab 05/27/24 DS 800-160 mg] Allergies Allergy/AdvReac Type Severity Reaction Status Date / Time No Known Allergies Allergy Verified 05/27/24 15:06 Review of Systems ROS Statement: Those systems with pertinent positive or pertinent negative responses have been documented in the HPI. ROS Other: All systems not noted in ROS Statement are negative. Past Medical History Past Medical History: Hypertension Additional Past Medical History / Comment(s): back pain, alcoholism History of Any Multi-Drug Resistant Organisms: None Reported Past Surgical History: Adenoidectomy, Appendectomy Additional Past Surgical History / Comment(s): reconstructive sx on face Past Anesthesia/Blood Transfusion Reactions: No Reported Reaction Past Psychological History: Bipolar, Depression Smoking Status: Vaper Past Alcohol Use History: Occasional Past Drug Use History: Cocaine, Marijuana General Exam Limitations: no limitations General appearance: alert, in no apparent distress Head exam: Present: atraumatic, normocephalic, normal inspection Eye exam: Present: normal appearance, EOMI Neck exam: Present: normal inspection. Absent: meningismus Respiratory exam: Absent: respiratory distress Cardiovascular Exam: Present: regular rate Right Upper Arm exam: Present: full ROM Neurological exam: Present: alert, oriented X3 Psychiatric exam: Present: normal affect, normal mood Expanded Type of lesion: Present: abscess (Right AC) Course Vital Signs 05/27/24 05/27/24 05/27/24 15:04 18:08 18:36 Temperature 97.8 F 98.1 F Pulse Rate 86 72 76 Respiratory 18 18 18 Rate Blood Pressure 155/107 154/96 148/95 O2 Sat by Pulse 99 98 97 Oximetry Medical Decision Making - Medical Decision Making Was pt. sent in by a medical professional or institution (, PA, FUEL AGENT, urgent care, hospital, or custodial...) When possible be specific @ -No Did you speak to anyone other than the patient for history (EMS, parent, family, police, friend...)? What history was obtained from this source @ -No Did you review nursing and triage notes (agree or disagree)? Why? @ -I reviewed and agree with nursing and triage notes Were old charts reviewed (outside hosp., previous admission, EMS record, old EKG, old radiological studies, urgent care reports/EKG's, custodial records)? Report findings @ -No old charts were reviewed Differential Diagnosis (chest pain, altered mental status, abdominal pain women, abdominal pain men, vaginal bleeding, weakness, fever, dyspnea, syncope, headache, dizziness, GI bleed, back pain, seizure, CVA, palpatations, mental health, musculoskeletal)? @ -[place] includes cellulitis, abscess, allergic reaction, this is not an all-inclusive list EKG interpreted by me (3pts min.). @ -As above X-rays interpreted by me (1pt min.). @ -None done CT interpreted by me (1pt min.). @ -None done U/S interpreted by me (1pt. min.). @ -None done What testing was considered but not performed or refused? (CT, X-rays, U/S, labs)? Why? @ -None What meds were considered but not given or refused? Why? @ -None Did you discuss the management of the patient with other professionals (professionals i.e. DrJonathan, PA, FUEL AGENT, lab, RT, psych nurse, psych social worker, lithographic photographer apprentice, teacher, radiation officer, egg caser)? Give summary @ -No Was smoking cessation discussed for >3mins.? @ -No Was critical care preformed (if so, how long)? @ -No Were there social determinants of health that impacted care today? How? (Homelessness, low income, unemployed, alcoholism, drug addiction, transportation, low edu. Level, literacy, decrease access to med. care, shelter, rehab)? @ -No Was there de-escalation of care discussed even if they declined (Discuss DNR or withdrawal of care, Hospice)? DNR status @ -No What co-morbidities impacted this encounter? (DM, HTN, Smoking, COPD, CAD, Cancer, CVA, ARF, Chemo, Hep., AIDS, mental health diagnosis, sleep apnea, morbid obesity)? @ -None Was patient admitted / discharged? Hospital course, mention meds given and route, prescriptions, significant lab abnormalities, going to OR and other pertinent info. @ -38-year-old male presenting with chief complaint of abscess to the right AC. Needle incision is performed, I am able to express a small amount of pus from the abscess. The remainder is quite indurated. Patient is treated with Keflex and Bactrim and educated on wound care as well as signs of worsening infection that should prompt reevaluation. Patient is also concerned about his elevated blood pressure. He is given clonidine 0.1 mg. Blood pressure improves he will follow-up with a PCP. Follow-up with PCP. Report back to ER with any new or worsening symptoms. Discussed return parameters and answered all questions. Patient conveyed verbal understanding and agreed to the plan. I discussed this case in detail with my attending Dr. evans Undiagnosed new problem with uncertain prognosis? @ -No Drug Therapy requiring intensive monitoring for toxicity (Heparin, Nitro, Insulin, Cardizem)? @ -No Were any procedures done? @ -Needle aspiration Diagnosis/symptom? @ -Abscess, hypertension Acute, or Chronic, or Acute on Chronic? @ -Acute Uncomplicated (without systemic symptoms) or Complicated (systemic symptoms)? @ -Uncomplicated Side effects of treatment? @ -No Exacerbation, Progression, or Severe Exacerbation? @ -No Poses a threat to life or bodily function? How? (Chest pain, [place], [place], pneumonia, PE, COPD, DKA, ARF, appy, cholecystitis, CVA, Diverticulitis, Homicidal, Suicidal, threat to staff... and all critical care pts) @ -No immediate threat. Improperly treated infection or prolonged uncontrolled hypertension does result in long-term threat Disposition Clinical Impression: Abscess Disposition: HOME SELF-CARE Condition: Good Instructions (If sedation given, give patient instructions): Abscess Incision and Drainage (ED), Abscess (ED) Additional Instructions: Follow-up with PCP. Report back to ER with any new or worsening symptoms, including but not limited to increase in pain size or redness, fever, red streaking up the arm. Take medication as prescribed. Use warm compresses for 10 to 15 minutes at a time 6-8 times per day to help express any remaining pus. Prescriptions: Sulfamethox-Tmp 800-160Mg [Bactrim DS 800-160 mg] 1 tab PO Q12HR 7 Days #14 tab Cephalexin [Keflex] 500 mg PO Q6HR 7 Days #28 cap Is patient prescribed a controlled substance at d/c from ED?: No Referrals: [facility] [NON-STAFF] - 1-2 days [facility] [NON-STAFF] - 1-2 days None,Stated [Primary Care Provider] - 1-2 days Forms: Area PCPs Time of Disposition: 18:15
[2024-05-27 18:38] VITALS: BP 148/95; PULSE 76; TEMP 98.1
== END 2024-05-27 18:38 | disposition home or self-care (01) ==
LOC: EC 15:00
DX: L02.91 Cutaneous abscess, unspecified (principal); I10 Essential (primary) hypertension; F17.290 Nicotine dependence, other tobacco product, uncomplicated
CPT/HCPCS: 99283

== ENCOUNTER → 2024-10-01 | Outpatient (CLI) | payer OTHER ==
[2024-10-01 15:05] LABS: ALT 22 U/L (10-49); AST 21 U/L (14-35); Chol/HDL Ratio 2.96 Ratio; LDL Cholesterol,Calculated 90.1 mg/dL (0.0-131.0); VLDL Calculation 11.84 mg/dL (5.00-40.00)
== END | disposition home or self-care (01) ==
LOC: LABWHC1 08:49
PROVIDERS: ATTEND Internal Medicine Cardiovascular Disease
DX: E78.2 Mixed hyperlipidemia (principal)
CPT/HCPCS: 36415; 80061; 84450; 84460